=== PATIENT | male | born 1980 | race Caucasian/White ===

== ENCOUNTER 2019-03-22 11:52 | Emergency (ER) | payer OTHER ==
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
[2019-03-22] MEDS ORDERED: Acetaminophen TAB* 325 MG PO ONE (14:25)
[2019-03-22 14:48] VITALS: BP 132/74
== END 2019-03-22 14:45 | disposition home or self-care (01) ==
LOC: ED 11:52
DX: S62.394A Other fracture of fourth metacarpal bone, right hand, initial encounter for closed fracture (principal); W22.8XXA Striking against or struck by other objects, initial encounter; M79.641 Pain in right hand; Y92.9 Unspecified place or not applicable; F17.210 Nicotine dependence, cigarettes, uncomplicated
CPT/HCPCS: 99282; A9270-GY